=== PATIENT | female | born 1985 | race African-American/Black ===

== ENCOUNTER 2017-08-26 13:17 | Emergency (ER) | payer OTHER, MEDICAID ==
[2017-08-26 13:18] VITALS: BP 125/70; PULSE 116; RESP 18; TEMP 98.3; O2SAT 100
[2017-08-26 14:12] LABS: AUTOMATED NEUTROPHIL # 10.7 TH/MM3 (1.8-7.7); BASOPHIL # 0.1 TH/MM3 (0-0.2); BASOPHIL % 0.4 % (0.0-2.0); EOSINOPHIL # 0.1 TH/MM3 (0-0.4); EOSINOPHIL % 0.7 % (0.0-4.0); HEMATOCRIT 34.2 % (35.0-46.0); HEMOGLOBIN 11.5 GM/DL (11.6-15.3); LYMPH % 14.4 % (9.0-44.0); MEAN CELL VOLUME 95.9 FL (80.0-100.0); MEAN CORPUSCULAR HEMOGLOBIN 32.3 PG (27.0-34.0); MEAN CORPUSCULAR HGB CONC 33.6 % (32.0-36.0); MEAN PLATELET VOLUME 7.8 FL (7.0-11.0); MONO % 5.9 % (0.0-8.0); MONOCYTE # 0.8 TH/MM3 (0-0.9); NEUT % 78.6 % (16.0-70.0); PLATELET COUNT 291 TH/MM3 (150-450); RED BLOOD COUNT 3.57 MIL/MM3 (4.00-5.30); RED CELL DISTRIBUTION WIDTH 13.8 % (11.6-17.2); WHITE BLOOD COUNT 13.6 TH/MM3 (4.0-11.0)
[2017-08-26 14:21] LABS: AMORPHOUS SEDIMENT, URINE RARE; BILIRUBIN, URINE NEG (NEG); BLOOD, URINE NEG (NEG); GLUCOSE,URINE NEG (NEG); KETONE, URINE NEG (NEG); MUCUS URINE FEW /lpf (OCC); NITRITE,URINE NEG (NEG); PH, URINE 6.5 (5.0-8.5); SQUAMOUS EPITHELIAL CELL URINE 6 /hpf (0-5); URINE COLOR YELLOW (YELLW/STRAW); URINE LEUKOCYTE ESTERASE NEG (NEG)
[2017-08-26 14:28] LABS: BACTERIA, URINE MOD /hpf
[2017-08-26 14:31] LABS: BICARBONATE 25.7 MEQ/L (21.0-32.0); CALCIUM 9.3 MG/DL (8.5-10.1); CREATININE 0.5 MG/DL (0.50-1.00)
[2017-08-26] MEDS ORDERED: LIDOCAINE HCL 1% 50 ML VIAL INFIL ONE (15:45)
--- NOTE | 2017-08-26 15:54 | PD ---
HPI Chief Complaint: Abdominal Pain Time Seen by Provider: 15:26 Travel History International Travel<30 days: No Contact w/Intl Traveler<30days: No Traveled to known affect area: No History of Present Illness HPI 31-year-old F [place] female who is 10 weeks , presents emergency department with lower abdominal cramping, dysuria, and clear vaginal discharge over the past 2 days. Patient denies significant nausea, flank pain, or vomiting. Patient states she feels she is in a monogamous relationship with her of 5 years. Labs ordered in triage including CBC, CMP, urinalysis with GC and chlamydia. Patient denies rash, or vaginal irritation. She denies vaginal bleeding. She has no known drug allergies. PFSH Past Medical History Hx Anticoagulant Therapy: No Anemia: Yes Asthma: No Autoimmune Disease: No Blood Disorders: No Anxiety: No Depression: No Cancer: No Cardiovascular Problems: No Chemotherapy: No COPD: No Cerebrovascular Accident: No Diabetes: No Diminished Hearing: No Endocrine: No Gastrointestinal Disorders: No Glaucoma: No Genitourinary: No Hepatitis: No Hiatal Hernia: No Hypertension: No Immune Disorder: No Musculoskeletal: No Neurologic: No Psychiatric: No Reproductive: No Respiratory: No Immunizations Current: No Sickle Cell Disease: No Sleep Apnea: No Thyroid Disease: No ?: : 1 Para: 1 Past Surgical History Hysterectomy: No Pacemaker: No Other Surgery: Yes (CYSTS REMOVED FROM WRIST AND LEFT BREAST) Social History Alcohol Use: No Tobacco Use: Yes (BLACK & MILDS, APPROX. ONE/DAY) Substance Use: No Allergies-Medications (Allergen,Severity, Reaction): Coded Allergies: No Known Allergies (Verified , 05/25/15) Reported Meds & Prescriptions Reported Meds & Active Scripts Active Keflex (Cephalexin) 500 Mg Cap 500 Mg PO Q8H 7 Days Review of Systems Except as stated in HPI: all other systems reviewed are Neg General / Constitutional: No: Fever, Chills Eyes: No: Visual changes HENT: No: Headaches Cardiovascular: No: Chest Pain or Discomfort Respiratory: No: Shortness of Breath Gastrointestinal: Positive: Abdominal Pain Genitourinary: Positive: Frequency, Discharge (See history present illness), No : Dysuria, Vaginal Bleeding Musculoskeletal: No: Pain Skin: No Rash Neurologic: No: Weakness Psychiatric: No: Depression Endocrine: No: Polydipsia Hematologic/Lymphatic: No: Easy Bruising Physical Exam Narrative GENERAL: Patient appears in no obvious distress SKIN: Warm and dry. Normal color. Normal turgor HEAD: Atraumatic. Normocephalic. EYES: Pupils equal and round. No scleral icterus. No injection or drainage. ENT: No nasal bleeding or discharge. Mucous membranes pink and moist. Pharynx is clear. Airways patent NECK: Trachea midline. Supple and nontender CARDIOVASCULAR: Regular rate and rhythm. RESPIRATORY: No accessory muscle use. Clear to auscultation. Breath sounds equal bilaterally. GASTROINTESTINAL: Abdomen soft, non-tender, nondistended. Hepatic and splenic margins not palpable. No CVA tenderness. Patient refuses pelvic exam. MUSCULOSKELETAL: Extremities without clubbing, cyanosis, or edema. No obvious deformities. NEUROLOGICAL: Awake and alert. No obvious cranial nerve deficits. Motor grossly within normal limits. Five out of 5 muscle strength in the arms and legs. Normal speech. PSYCHIATRIC: Appropriate mood and affect; insight and judgment normal. Data Data Last Documented VS Vital Signs Date Time Temp Pulse Resp B/P (MAP) Pulse Ox O2 Delivery O2 Flow Rate FiO2 08/26/17 17:07 97 17 118/68 (85) 100 08/26/17 13:18 98.3 Orders Orders Basic Metabolic Panel (Bmp) (08/26/17 13:49) Complete Blood Count With Diff (08/26/17 13:49) Urinalysis - C+S If Indicated (08/26/17 13:49) Ed Urine Pregnancytest Poc (08/26/17 13:49) Gc And Chlamydia Pcr (08/26/17 13:49) Urine Culture (08/26/17 14:00) Ceftriaxone Inj (Rocephin Inj) (08/26/17 15:45) Lidocaine 1% Inj (50 Ml) (Xylocaine 1% I (08/26/17 15:45) Ed Discharge Order (08/26/17 15:56) Lidocaine Pf 1% Inj (Xylocaine-Mpf 1% In (08/26/17 16:14) Ed Poc Ultrasound (08/26/17 ) Labs Laboratory Tests Test 08/26/17 13:55 08/26/17 14:00 White Blood Count 13.6 TH/MM3 Red Blood Count 3.57 MIL/MM3 Hemoglobin 11.5 GM/DL Hematocrit 34.2 % Mean Corpuscular Volume 95.9 FL Mean Corpuscular Hemoglobin 32.3 PG Mean Corpuscular Hemoglobin Concent 33.6 % Red Cell Distribution Width 13.8 % Platelet Count 291 TH/MM3 Mean Platelet Volume 7.8 FL Neutrophils (%) (Auto) 78.6 % Lymphocytes (%) (Auto) 14.4 % Monocytes (%) (Auto) 5.9 % Eosinophils (%) (Auto) 0.7 % Basophils (%) (Auto) 0.4 % Neutrophils # (Auto) 10.7 TH/MM3 Lymphocytes # (Auto) 2.0 TH/MM3 Monocytes # (Auto) 0.8 TH/MM3 Eosinophils # (Auto) 0.1 TH/MM3 Basophils # (Auto) 0.1 TH/MM3 CBC Comment DIFF FINAL Differential Comment Blood Urea Nitrogen 11 MG/DL Creatinine 0.50 MG/DL Random Glucose 101 MG/DL Calcium Level 9.3 MG/DL Sodium Level 135 MEQ/L Potassium Level 3.7 MEQ/L Chloride Level 102 MEQ/L Carbon Dioxide Level 25.7 MEQ/L Anion Gap 7 MEQ/L Estimat Glomerular Filtration Rate 174 ML/MIN Urine Color YELLOW Urine Turbidity HAZY Urine pH 6.5 Urine Specific [place] 1.025 Urine Protein TRACE mg/dL Urine Glucose (UA) NEG mg/dL Urine Ketones NEG mg/dL Urine Occult Blood NEG Urine Nitrite NEG Urine Bilirubin NEG Urine Urobilinogen LESS THAN 2.0 MG/DL Urine Leukocyte Esterase NEG Urine RBC 1 /hpf Urine WBC LESS THAN 1 /hpf Urine Squamous Epithelial Cells 6 /hpf Urine Amorphous Sediment RARE Urine Bacteria MOD /hpf Urine Mucus FEW /lpf Microscopic Urinalysis Comment CULTURE INDICATED MDM Medical Decision Making Medical Screen Exam Complete: Yes Emergency Medical Condition: Yes Differential Diagnosis Urinary tract infection. Vaginal discharge. Possible STD. Narrative Course Patient appears medically stable at time of exam. Bedside ultrasound performed by myself shows single intrauterine with heart rate of 134 bpm. From the patient's history and physical I highly doubt that she has an STD. Patient will be given Rocephin 1000 mg IM for her UTI and possible although unlikely STD. GC and Chlamydia is pending. Urine culture is pending Patient will be continued on Keflex 500 mg 3 times daily for 7 days. Patient will be called if her chlamydia test is positive. Patient will follow up with [employer] as scheduled. Patient can return to emergency department if symptoms worsen as needed. Diagnosis Primary Impression: Urinary tract infection Qualified Codes: N30.00 - Acute cystitis without hematuria Referrals: [employer] Super[employer] Patient Instructions: Dysuria (ED), General Instructions Additional Instructions: GC and Chlamydia is pending. Urine culture is pending Patient will be continued on Keflex 500 mg 3 times daily for 7 days. Patient will be called if her chlamydia test is positive. Patient will follow up with [employer] as scheduled. Patient can return to emergency department if symptoms worsen as needed. Med/Other Pt SpecificInfo: Prescription(s) given Scripts Cephalexin (Keflex) 500 Mg Cap 500 MG PO Q8H for Infection for 7 Days, #21 CAP 0 Refills Prov: Debby Sterling MD 08/26/17 Disposition: 01 DISCHARGE HOME Condition: Stable Rehan Wyman Aug 26, 2017 15:54
[2017-08-26] MEDS ORDERED: CEPH-460 PO (15:55)
[2017-08-26] MEDS ORDERED: LIDOCAINE HCL 1% PF 30 ML VIAL ONE (16:14)
[2017-08-26 17:07] VITALS: BP 118/68
== END 2017-08-26 17:30 | disposition home or self-care (01) ==
LOC: NEPD 13:17
DX: O23.11 Infections of bladder in pregnancy, first trimester (principal); N30.00 Acute cystitis without hematuria; Z3A.10 10 weeks gestation of pregnancy
CPT/HCPCS: 80048; 81001; 84703; 85025; 87086; 87491; 87591; 96372; 99283; J0696

== ENCOUNTER → 2017-11-06 | Outpatient (CLI) | payer OTHER ==
[~2017-11-06] MED LIST: CEPH-460 PO
== END ==
LOC: HPND 08:12
PROVIDERS: ATTEND Obstetrics & Gynecology
DX: O28.0 Abnormal hematological finding on antenatal screening of mother (principal)
CPT/HCPCS: 36415; 76811

== ENCOUNTER 2017-12-11 19:58 | Emergency (ER) | payer OTHER ==
--- NOTE | 2017-12-11 21:03 | PD ---
HPI Chief Complaint Right sided lower abdominal pain started early this morning Date Seen: December 11, 2017 Time Seen: 20:58 Travel History International Travel<30 Days: No Contact w/Intl Traveler<30Days: No Known Affected Area: No History of Present Illness HPI 32-year-old white female to [address] Gonzalez who presents complaining of right lower quadrant almost right inguinal pain that began early this morning is been persistent all day., She denies bleeding or leakage of fluid, heart rate tracing is reactive, and there are no contractions seen Weeks Gestation: 25 Para: 1 : 3 Miscarriage: 1 History Obstetric History Obstetric History 1 vaginal delivery 1 early loss Social History Alcohol Use: No Tobacco Use: No Substance Abuse: No Allergies-Medications (Allergen,Severity, Reaction): Coded Allergies: No Known Allergies (Verified , 05/25/15) Home Meds Active Scripts Cephalexin (Keflex) 500 Mg Cap, 500 MG PO Q8H for Infection for 7 Days, #21 CAP 0 Refills Prov:Debby Sterling MD 08/26/17 Review of Systems General / Constitutional: No: Fever, Weight Gain, Chills, Other Eyes: No: Diploplia, Blurred Vision, Visual changes, Pain, Photophobia HENT: No: Headaches, Vertigo, Lightheadedness Cardiovascular: No: Irregular Rhythm, Chest Pain or Discomfort, Palpitations, Tachycardia, Syncope, Varicosities, Edema, Cyanosis Respiratory: No: Cough, Short of Breath, Other Gastrointestinal: Abdominal Pain, No: Nausea, Vomiting, Diarrhea Genitourinary: No: Decreased Urinary Output, Oliguria Musculoskeletal: No: Limited ROM, Weakness, Cramping, Edema, Pain Skin: No Rash, No Itching, No Dryness, No Lumps, No Change in Pigmentation, No Change in Nails, No Alopecia, No Lesions Neurologic: No: Weakness, Dizziness, Syncope, Focal Abnormalities, Coordination Problem, Headache, Slurred Speech, Seizures Psychiatric: No: Depression, Suicidal Ideations, Homicidal Ideation Endocrine: No: Heat Intolerance, Cold Intolerance, Polydipsia, Polyuria, Other Physical Exam Narrative GENERAL: Well-nourished, well-developed patient. SKIN: Warm and dry. HEAD: Normocephalic and atraumatic. EYES: No scleral icterus. No injection or drainage. ENT: No nasal drainage noted. Mucous membranes pink. Airway patent. NECK: Supple, trachea midline. No JVD. CARDIOVASCULAR: Regular rate and rhythm without murmurs, gallops, or rubs. RESPIRATORY: Breath sounds equal bilaterally. No accessory muscle use. BREASTS: Bilateral exam showed no masses , no retractions, no nipple discharge. ABDOMEN/GI: Abdomen soft, non-tender, bowel sounds present, no rebound, no guarding Gravid to [25-] weeks size Fundal Height: [25-] GENITOURINARY: External Genitalia: intact and normal in appearance BUS glands: [-] Cervix: [post-] Dilatation: [0-] Effacement: [0-] Station: [-3] Presentation: [-] Membranes: [intact ] Uterine Contractions: [-none] FHT's: Category: [1-] Baseline: [-133] Reactive: [-R] Variability: [mod-] Decels: [0-] EXTREMITIES: No cyanosis or edema. BACK: Nontender without obvious deformity. No CVA tenderness. NEUROLOGICAL: Awake and alert. Motor and sensory grossly within normal limits. Five out of 5 muscle strength in all muscle groups. Normal speech. Data Data Labs urine dip negative MDM Interpretation(s) Patient is 32-year-old white female at 25 weeks who presents complaining of right lower quadrant/inguinal pain all day today, no other complaints or problems. Cervix is closed thick and high. There are no contractions. heart rate tracing is reactive. This is likely related to soft tissue strain and pain, round ligament distention and pain Plan Plan for patient be discharged home to bedrest, Tylenol usage as needed, p.o. fluid for hydration, heating pad or hot bath for symptom relief and she is to follow-up with Dr. Gonzalez. Diagnosis Diagnosis: Primary Impression: Abdominal pain, right lower quadrant Additional Impression: 25 weeks gestation of Disposition: DISCHARGE HOME Condition: Stable Patient Instructions: General Instructions, Movement (ED), Abdominal Pain in (ED) Departure Forms: Tests/Procedures Yaya Gonzalez II, MD December 11, 2017 21:03
== END 2017-12-11 22:14 | disposition home or self-care (01) ==
LOC: HOBED 19:58
DX: O26.892 Other specified pregnancy related conditions, second trimester (principal); R10.31 Right lower quadrant pain; Z3A.25 25 weeks gestation of pregnancy
CPT/HCPCS: 99284

== ENCOUNTER 2018-03-17 05:25 | Inpatient (IN) ==
[2018-03-17] MEDS ORDERED: Oxytocin 30 Units/500ml Premix 30 UNITS/500 ML BAG ONE (06:53)
[2018-03-17 07:01] LABS: Baso % (Auto) 0.2 % (0.0-2.0); Eos # (Auto) 0.1 th/mm3 (0.0-0.4); Eos % (Auto) 0.9 % (0.0-4.0); Hematocrit 28.4 % (35.0-46.0); Lymph # (Auto) 1.8 th/mm3 (1.0-4.8); Lymph % (Auto) 20.6 % (9.0-44.0); Mean Corpuscular HGB Conc 31.5 % (32.0-36.0); Mean Corpuscular Hemoglobin 26.5 pg (27.0-34.0); Mean Corpuscular Volume 84.3 fL (80.0-100.0); Mean Platelet Volume 9.7 fL (7.0-11.0); Mono # (Auto) 0.7 th/mm3 (0.0-0.9); Mono % (Auto) 7.4 % (0.0-8.0); Neut # (Auto) 6.4 th/mm3 (1.8-7.7); Neut % (Auto) 70.9 % (16.0-70.0); Platelet Count 249 th/mm3 (150-450); Red Blood Count 3.37 mil/mm3 (4.00-5.30); Red Cell Distribution Width 15.4 % (11.6-17.2)
[2018-03-17 07:06] LABS: Amphetamine Urine With Conf Neg (Neg); Benzodiazepine Urine With Conf Neg (Neg)
[2018-03-17 07:09] LABS: Bacteria,Urine Rare /hpf; Bilirubin,Urine Negative (Negative); Clarity,Urine Hazy (Clear); Color,Urine Yellow (Yellw/Straw); Glucose,Urine (UA) Negative (Negative); Leukocyte Esterase,Urine Small (Negative); Mucus,Urine Few /lpf (Occasional); Nitrite,Urine Negative (Negative); Specific Gravity,Urine 1.016 (1.002-1.035); Squamous Epithelial Cell,Urine 2 /hpf (0-5)
[2018-03-17 07:28] LABS: Albumin 2.5 g/dL (3.4-5.0); Anion Gap 11 meq/L (5-15); Aspartate Aminotransferase 20 U/L (15-37); Blood Urea Nitrogen 7 mg/dL (7-18); Calcium 8.5 mg/dL (8.5-10.1); Carbon Dioxide 20.4 meq/L (21.0-32.0); Chloride 108 meq/L (98-107); Glomerular Filtration Rate Greater Than 89 mL/min (>89); Glucose,Random 76 mg/dL (74-106); Potassium 3.8 meq/L (3.5-5.1); Sodium 139 meq/L (136-145)
[2018-03-17 07:29] LABS: Alanine Aminotransferase 13 U/L (10-53)
[2018-03-17 07:31] LABS: Alkaline Phosphatase 145 U/L (45-117); Total Protein 7.4 g/dL (6.4-8.2)
[2018-03-17] MEDS ORDERED: Naloxone Inj 0.4 MG/ML Vial IV.PUSH PRN ×2 (08:02→21:55)
[2018-03-17] MEDS ORDERED: Oxytocin 30 Units/500ml Premix 30 UNITS/500 ML BAG IV.SIG ONE (08:02)
[2018-03-17] MEDS ORDERED: fentaNYL Citrate Inj 100 MCG/2 ML Ampul IV.PUSH PRN ×2 (08:02)
[2018-03-17] MEDS ORDERED: Sodium Chlor 0.9% Inj 500 ML IV.SIG PRN (08:02)
[2018-03-17] MEDS ORDERED: Sod Chloride 0.9% Inj 1,000 ML IV.CONT PRN (08:02)
[2018-03-17] MEDS ORDERED: Oxytocin 30 Units/500ml Premix 30 UNITS/500 ML BAG IV.CONT PRN ×2 (08:06→21:55)
[2018-03-17] MEDS ORDERED: Citric Acid/Sodium Citrate Liq 30 ML UDC PO SCH (08:15)
[2018-03-17] MEDS ORDERED: fentaNYL 2MCG-Bupiv 0.125% Epi 150 ML EPIDURAL ONE (10:50)
[2018-03-17] MEDS ORDERED: Lidocaaine 1.5%/Epinephrine 1:200,000 PF Inj 5 ML Amp ONE (11:01)
[2018-03-17] MEDS ORDERED: Lidocaine PF 1% Inj 5 ML Vial ONE (11:01)
[2018-03-17] MEDS: Famotidine PF Inj 20 MG/2 ML Vial IV.PUSH PRN (11:48)
[2018-03-17] MEDS ORDERED: fentaNYL Citrate Inj 100 MCG/2 ML Ampul EPIDURAL ONE (12:30)
[2018-03-17] MEDS: fentaNYL 2MCG-Bupiv 0.125% Epi 150 ML EPIDURAL PRN ×2 (12:34→20:34)
[2018-03-17] MEDS ORDERED: Diphtheria/Tetanus/Pertussis Vaccine Inj 0.5 ML Syringe IM ONE (16:00)
[2018-03-17] MEDS ORDERED: Measles/Mumps/Rubella Vaccine Inj 0.5 ML Vial SQ ONE (16:00)
[2018-03-17] MEDS ORDERED: Famotidine PF Inj 20 MG/2 ML Vial IV.PUSH ONE (20:45)
[2018-03-17 20:54] VITALS: RESP 18
--- NOTE | 2018-03-17 21:54 | P.OBDELI ---
Weeks Gestation: 39 Medical Induction of Labor: Yes Artificial Rupture of Membrane: Yes Anesthesia: Epidural Episiotomy: none Vaginal Delivery: Normal, Spontaneous Presentation: Occiput anterior Nuchal Cord: x2 Delayed Cord Clamping (45 sec): No Shoulder Dystocia: Suprapubic pressure given, Laila maneuver done, Wood's screw maneuver done Placenta: Spontaneous delivery, Intact, 3 vessel cord Laceration: None, Perineal, 1 deg Repair: Chromic interrupted, Chromic running Estimated blood loss (mL): 300 : Female
[2018-03-17] MEDS ORDERED: Witch Hazel 50%/Glyderin 12.5% 40 Pad Jar RECTAL PRN (21:55)
[2018-03-17] MEDS ORDERED: Bisacodyl 10 MG Supp RECTAL PRN (21:55)
[2018-03-17] MEDS ORDERED: Acetaminophen 325 MG Tablet PO PRN (21:55)
[2018-03-17] MEDS ORDERED: Zolpidem Tartrate 5 MG Tablet PO PRN (21:55)
[2018-03-17] MEDS ORDERED: Benzocaine 20% Top Spray 60 ML Can TOPICAL PRN (21:55)
[2018-03-18] MEDS: Famotidine PF Inj 20 MG/2 ML Vial IV.PUSH PRN (01:43)
[2018-03-18] MEDS: Prenatal Vit/Ca/Iron/Folic Acid Tablet PO SCH (08:45)
[2018-03-18] MEDS: Senna/Docusate Sodium 8.6/50 MG Tablet PO SCH ×2 (08:46→21:55)
--- NOTE | 2018-03-18 13:33 | P.PNOB ---
Subjective Post day: 1 Interval history: Pt doing well, some perineal pain, minimal bleeding Objective Vital Signs/I&O: Vital Signs 03/17/18 13:45 03/17/18 13:59 03/17/18 14:00 Temperature 97.7 F Pulse Rate 75 92 H 98 H Respiratory Rate 18 Blood Pressure 127/67 125/68 130/78 03/17/18 14:15 03/17/18 14:45 03/17/18 15:15 Temperature Pulse Rate 98 H 95 H 101 H Respiratory Rate Blood Pressure 116/64 137/85 131/82 03/17/18 15:47 03/17/18 16:00 03/17/18 16:27 Temperature Pulse Rate 90 99 H 114 H Respiratory Rate Blood Pressure 130/76 118/69 140/101 H 03/17/18 16:30 03/17/18 16:45 03/17/18 17:00 Temperature 97.9 F Pulse Rate 106 H 110 H 114 H Respiratory Rate 18 Blood Pressure 138/86 108/77 110/69 03/17/18 17:46 03/17/18 18:00 03/17/18 18:30 Temperature Pulse Rate 108 H 114 H 113 H Respiratory Rate Blood Pressure 124/69 134/85 151/88 H 03/17/18 18:45 03/17/18 19:10 03/17/18 19:16 Temperature Pulse Rate 103 H 106 H 128 H Respiratory Rate Blood Pressure 145/83 H 137/66 03/17/18 19:30 03/17/18 19:45 03/17/18 20:00 Temperature 98.4 F Pulse Rate 110 H 110 H Respiratory Rate 20 18 Blood Pressure 138/82 141/86 H 03/17/18 20:16 03/17/18 20:45 03/17/18 20:53 Temperature Pulse Rate 119 H 120 H Respiratory Rate 20 18 Blood Pressure 138/90 143/79 H 03/17/18 21:22 03/17/18 21:30 03/17/18 21:45 Temperature 98.9 F Pulse Rate 143 H Respiratory Rate 18 Blood Pressure 136/90 132/77 03/17/18 22:15 03/17/18 22:16 03/17/18 22:30 Temperature Pulse Rate 146 H 105 H Respiratory Rate 18 Blood Pressure 152/77 H 138/79 03/17/18 23:00 03/18/18 08:00 Temperature 98.4 F 98.2 F Pulse Rate 103 H 80 Respiratory Rate 18 18 Blood Pressure 148/83 H 150/92 H Intake & Output 03/17/18 03/18/18 03/18/18 18:59 06:59 18:59 Intake Total 1000 / 1000 1000 / 1000 Balance 1000 / 1000 1000 / 1000 Intake: IV 1000 / 1000 1000 / 1000 LR 1000 mL Inj 1,000 ML @ 125 1000 / 1000 1000 / 1000 mls/hr IV.CONT .Q8H [facility] Rx#: [id number] Result Diagrams: 03/17/18 06:10 03/17/18 06:10 Objective Remarks: GENERAL: Well-nourished, well-developed patient. CARDIOVASCULAR: Regular rate and rhythm without murmurs, gallops, or rubs. RESPIRATORY: Breath sounds equal bilaterally. No accessory muscle use. ABDOMEN/GI: Abdomen soft, non-tender. Fundus: Firm, non-tender at umbilicus. GENITOURINARY: Light to moderate bleeding. EXTREMITIES: No cyanosis or edema, non-tender, without signs of DVT. Medications and IVs: Active Medications Acetaminophen (Tylenol) 650 mg PO Q4H PRN PRN Reason: PAIN SCALE 1 TO 2 Last Admin: 03/18/18 06:12 Dose: 650 mg Al Hydroxide/Mg Hydroxide (Milk Of Magnesia Liq) 30 ml PO Q12H PRN PRN Reason: Mild Constipation Benzocaine (Americaine 20% [place]) 1 spray TOPICAL Q4H PRN PRN Reason: For Perineum Discomfort Last Admin: 03/17/18 23:50 Dose: 1 spray Bisacodyl (Dulcolax Supp) 10 mg RECTAL DAILY PRN PRN Reason: SEVERE CONSITIPATION Citric Acid/Sodium Citrate (Sodium Citrate/Citric Acid Liq) 30 ml PO [employer]CHITECT[employer] ENGINE[employer] [facility] Stop: 03/21/18 08:14 Famotidine (Pepcid Pf Inj) 20 mg IV.PUSH Q12H PRN PRN Reason: HEARTBURN Last Admin: 03/18/18 01:43 Dose: 20 mg Fentanyl Citrate (Fentanyl Inj) 50 mcg IV.PUSH Q1H PRN PRN Reason: Pain Scale 3 - 5 Fentanyl Citrate (Fentanyl Inj) 100 mcg IV.PUSH Q1H PRN PRN Reason: PAIN SCALE 6 TO 10 Last Admin: 03/17/18 10:30 Dose: 100 mcg Lactated Ringer's (Lr 1000 Ml Inj) 1,000 mls @ 3,000 mls/hr IV.SIG UNSCH PRN PRN Reason: compromise or epidural Sodium Chloride (Ns Inj) 500 mls @ 1,000 mls/hr IV.SIG UNSCH PRN PRN Reason: SEE LABEL COMMENTS Sodium Chloride (Ns Inj) 1,000 mls @ 100 mls/hr IV.CONT .Q10H PRN PRN Reason: SEE LABEL COMMENTS Oxytocin (Pitocin 30 Units/Ns 500 Ml Premix) 30 units in 500 mls @ 2 mls/hr IV.CONT TITRATE PRN; Protocol PRN Reason: For induction of labor Last Admin: 03/17/18 10:31 Dose: 2 milliunit/min, 2 mls/hr Lactated Ringer's (Lr 1000 Ml Inj) 1,000 mls @ 125 mls/hr IV.CONT .Q8H [facility] Last Admin: 03/18/18 10:19 Dose: Not Given Fentanyl/Bupivacaine/Sodium Chlor (Fentanyl 2 Mcg-Bupiv 0.125% Epi) 150 mls @ 10 mls/hr EPIDURAL PRN PRN PRN Reason: for Labor Pain Last Admin: 03/17/18 20:34 Dose: 10 mls/hr Oxytocin (Pitocin 30 Units/Ns 500 Ml Premix) 30 units in 500 mls @ 100 mls/hr IV.CONT UNSCH PRN PRN Reason: Heavy bleeding Ibuprofen (Motrin) 800 mg PO Q8H PRN PRN Reason: For Cramping Last Admin: 03/18/18 08:45 Dose: 800 mg Lactulose (Lactulose Liq) 30 ml PO DAILY PRN PRN Reason: SEVERE CONSITIPATION Lidocaine HCl (Xylocaine 1% Inj) 0.1 ml I-DERMAL PRN PRN PRN Reason: For IV start Stop: 03/20/18 08:01 Lidocaine HCl (Xylocaine 1% Inj) 10 ml INFILTRATN PRN PRN PRN Reason: For episiotomy repair Stop: 03/19/18 08:01 Mineral Oil (Muri-Lube Oil) 10 ml TOPICAL PRN PRN PRN Reason: PRN perineal massage Naloxone HCl (Narcan Inj) 0.1 mg IV.PUSH Q2M PRN PRN Reason: for opiate reversal Naloxone HCl (Narcan Inj) 0.1 mg IV.PUSH Q2M PRN PRN Reason: for opiate reversal Ondansetron HCl (Zofran Inj) 4 mg IV.PUSH Q6H PRN PRN Reason: NAUSEA OR VOMITING Last Admin: 03/17/18 11:48 Dose: 4 mg Ondansetron HCl (Zofran Odt) 4 mg PO Q6H PRN PRN Reason: NAUSEA OR VOMITING Oxycodone/Acetaminophen (Percocet 5/325 Mg) 1 tab PO Q4H PRN PRN Reason: PAIN SCALE 3 TO 5 Oxycodone/Acetaminophen (Percocet 5/325 Mg) 2 tab PO Q4H PRN PRN Reason: PAIN SCALE 6 TO 10 Vit/Calcium/Iron/Folic Ac (Stuartnatal Plus 3) 1 tab PO DAILY [facility] Last Admin: 03/18/18 08:45 Dose: 1 tab Senna/Docusate Sodium (Frannie-Colace) 1 tab PO BID [facility] Last Admin: 03/18/18 08:46 Dose: 1 tab Sennosides (Senokot) 17.2 mg PO Q12H PRN PRN Reason: Moderate Constipation Sodium Chloride (Ns Flush) 2 ml IV.FLUSH BID [facility] Last Admin: 03/18/18 08:45 Dose: 2 ml Sodium Chloride (Ns Flush) 2 ml IV.FLUSH PRN PRN PRN Reason: FLUSH AFTER USING IV ACCESS Last Admin: 03/18/18 01:43 Dose: 2 ml Witch Guerda/Glycerin (Tucks Pads) 1 applicatio RECTAL QID PRN PRN Reason: HEMORRHOIDS Last Admin: 03/17/18 23:50 Dose: 1 applicatio Zolpidem Tartrate (Ambien) 5 mg PO HS PRN PRN Reason: SLEEP Assessment and Plan - Plan Discharge Planning: PPD # 1 s/p , doing well, routine care
[2018-03-19 08:57] VITALS: BP 146/82
[2018-03-19 08:58] VITALS: PULSE 85; TEMP 98.1
[2018-03-19] MEDS: Prenatal Vit/Ca/Iron/Folic Acid Tablet PO SCH (09:49)
[2018-03-19] MEDS: Senna/Docusate Sodium 8.6/50 MG Tablet PO SCH (09:49)
== END 2018-03-19 15:08 | disposition home or self-care (01) ==
LOC: H2E 05:25 → H1EA 03-18 00:34
PROVIDERS: ADMIT Obstetrics & Gynecology; ATTEND Obstetrics & Gynecology